=== PATIENT | male | born 1950 | race Caucasian/White ===

== ENCOUNTER 2017-10-12 13:59 | Emergency (ER) | payer BC ==
--- NOTE | 2017-10-12 14:49 | EDM.PDOC ---
ED HPI GENERAL MEDICAL PROBLEM - General Chief Complaint: Diabetic Complaint Stated Complaint: [id number] DIABETIC RIGHT FOOT TURNING BLACK Time Seen by Provider: 10/12/17 14:40 Source of Information: Reports: Patient History Limitations: Reports: No Limitations - History of Present Illness INITIAL COMMENTS - FREE TEXT/NARRATIVE: This 67 yo male patient reports to the ED with bruising to his right foot. The patient does not recall any specific injury to the area. The patient reports no pain to the area at this time. The patient reports increased concern due to him being a diabetic. Duration: Day(s): Location: Reports: Lower Extremity, Right Quality: Reports: Other Severity: Mild Improves with: Reports: None Worsens with: Reports: None - Related Data Allergies Allergy/AdvReac Type Severity Reaction Status Date / Time No Known Allergies Allergy Verified 10/12/17 14:12 Home Meds: Home Meds Aspirin [Ecotrin] 81 mg PO DAILY 10/12/17 [History] Insulin Aspart [NovoLOG] 26 units SUBCUT TID 10/12/17 [History] Insulin Glarg,Human.Rec.Analog [Lantus] 34 units SUBCUT BID 10/12/17 [History] Liraglutide [Victoza] 1.8 ml SUBCUT DAILY 10/12/17 [History] Multivitamin [Men's Multi-Vitamin] 1 tab PO DAILY 10/12/17 [History] Simvastatin [Zocor] 40 mg pe PO DAILY 10/12/17 [History] amLODIPine Besylate [Norvasc] 10 mg PO DAILY 10/12/17 [History] metFORMIN [Glucophage] 1,000 mg PO DAILY 10/12/17 [History] Past Medical History HEENT History: Reports: Impaired Vision Endocrine/Metabolic History: Reports: Diabetes, Type II - Infectious Disease History Infectious Disease History: Reports: Chicken Pox, Measles, Mumps - Past Surgical History Musculoskeletal Surgical History: Reports: Other (See Below) Other Musculoskeletal Surgeries/Procedures:: drill bit removed from top of right foot Social & Family History - Family History Family Medical History: Noncontributory - Tobacco Use Smoking Status *Q: Never Smoker - Caffeine Use Caffeine Use: Reports: None - Recreational Drug Use Recreational Drug Use: No ED ROS GENERAL - Review of Systems Review Of Systems: ROS reveals no pertinent complaints other than HPI. ED EXAM GENERAL NO PERIP PULSE - Physical Exam Exam: See Below Exam Limited By: No Limitations General Appearance: Alert, WD/WN, No Apparent Distress Eye Exam: Bilateral Eye: EOMI, Normal Inspection, PERRL Ears: Normal External Exam, Normal Canal, Hearing Grossly Normal, Normal TMs Nose: Normal Inspection, Normal Mucosa, No Blood Throat/Mouth: Normal Inspection, Normal Lips, Normal Teeth, Normal Gums, Normal Oropharynx, Normal Voice, No Airway Compromise Head: Atraumatic, Normocephalic Neck: Normal Inspection, Supple, Non-Tender, Full Range of Motion Respiratory/Chest: No Respiratory Distress, Lungs Clear, Normal Breath Sounds, No Accessory Muscle Use, Chest Non-Tender Cardiovascular: Normal Peripheral Pulses, Regular Rate, Rhythm, No Edema, No Gallop, No JVD, No Murmur, No Rub GI/Abdominal: Normal Bowel Sounds, Soft, Non-Tender, No Organomegaly, No Distention, No Abnormal Bruit, No Mass (Male) Exam: Deferred Rectal (Males) Exam: Deferred Back Exam: Normal Inspection, Full Range of Motion, NT Extremities: Other (bruising to the bases of his right 2nd, 3rd and 4th toes) Neurological: Alert, Oriented, CN II-XII Intact, Normal Cognition, Normal Gait, Normal Reflexes, No Motor/Sensory Deficits Psychiatric: Normal Affect, Normal Mood Skin Exam: Warm, Dry, Intact, No Rash, Ecchymosis Lymphatic: No Adenopathy Course - Vital Signs Last Recorded V/S: Last Vital Signs Temp 36.6 C 10/12/17 14:06 Pulse 86 10/12/17 14:06 Resp 15 10/12/17 14:06 BP 143/115 H 10/12/17 14:06 Pulse Ox 100 10/12/17 14:06 - Orders/Labs/Meds Labs: Laboratory Tests 10/12/17 Range/Units 14:17 POC Glucose 118 H (70-105) mg/dl Departure - Departure Time of Disposition: 15:23 Disposition: Home, Self-Care 01 Condition: Fair Clinical Impression: Foot contusion Qualifiers: Encounter type: initial encounter Laterality: right Qualified Code(s): S90.31XA - Contusion of right foot, initial encounter - Discharge Information *PRESCRIPTION DRUG MONITORING PROGRAM REVIEWED*: Not Applicable *COPY OF PRESCRIPTION DRUG MONITORING REPORT IN PATIENT JORGE: Not Applicable Instructions: Foot Contusion Forms: ED Department Discharge Care Plan Goals: The patient was advised of the examination and x-ray results during the visit. The patient was encouraged to rest and elevate the extremity over the next 48 hours. If the patient has any additional symptoms or concerns, the patient should follow up with his primary care facility or return to the emergency department.
--- NOTE | 2017-10-12 15:07 | CR ---
Clinical history: 67-year-old male "bruising" of the forefoot (second, third and fourth toes). Interpretation: Chronic arthritic changes first metatarsophalangeal and all interphalangeal/DIP joint s. No sign of right foot fracture or joint dislocation. Large heel spurs at the insertion Achilles tendon and plantar aponeurosis on the os calcis. No foreign bodies or inflammatory periostitis.
== END 2017-10-12 15:35 | disposition home or self-care (01) ==
LOC: DL.ED 13:59
DX: S90.31XA Contusion of right foot, initial encounter (principal); E11.9 Type 2 diabetes mellitus without complications; Z79.4 Long term (current) use of insulin; Z79.899 Other long term (current) drug therapy; Z79.82 Long term (current) use of aspirin; X58.XXXA Exposure to other specified factors, initial encounter
CPT/HCPCS: 73630-RT; 82962; 99283

== ENCOUNTER 2018-04-09 18:26 | Emergency (ER) | payer MEDICARE, BC ==
[2018-04-09 19:46] LABS: ANION GAP 15.2; CHLORIDE,CL 106 mmol/L (101-111); SODIUM,NA 137 mmol/L (135-145)
--- NOTE | 2018-04-09 21:28 | EDM.PDOC ---
ED HPI GENERAL MEDICAL PROBLEM - General Chief Complaint: General Stated Complaint: [facility] Time Seen by Provider: 04/09/18 19:05 Source of Information: Reports: Patient, EMS, RN Notes Reviewed History Limitations: Reports: No Limitations - History of Present Illness INITIAL COMMENTS - FREE TEXT/NARRATIVE: ED via EMS. Hypoglycemic episode, reported blood sugar at home 30. EMS arrival BS22. D50 given with arousal and oral glucose . BS 109 on arrival to ED. Patient reported to have taken am insulin at 2pm of 40 units Lantus and 30 units of regular and did not eat. Stated he just didnot feel hungry. Patient known to facility with similar episode. No vomiting or other symptoms. No injury Treatments RN INTERNATIONAL: Reports: EKG, Glucagon - Related Data Allergies Allergy/AdvReac Type Severity Reaction Status Date / Time Penicillins Allergy Cannot Verified 04/09/18 18:48 Remember Home Meds: Home Meds Aspirin [Ecotrin] 81 mg PO DAILY 10/12/17 [History] Insulin Aspart [NovoLOG] 35 units SUBCUT TID 10/12/17 [History] Insulin Glarg,Human.Rec.Analog [Lantus] 60 units SUBCUT BID 10/12/17 [History] Liraglutide [Victoza] 1.8 ml SUBCUT DAILY 10/12/17 [History] Multivitamin [Men's Multi-Vitamin] 1 tab PO DAILY 10/12/17 [History] amLODIPine Besylate [Norvasc] 10 mg PO DAILY 10/12/17 [History] metFORMIN [Glucophage] 1,000 mg PO DAILY 10/12/17 [History] Past Medical History HEENT History: Reports: Impaired Vision Endocrine/Metabolic History: Reports: Diabetes, Type II - Infectious Disease History Infectious Disease History: Reports: Chicken Pox, Measles, Mumps - Past Surgical History Musculoskeletal Surgical History: Reports: Other (See Below) Other Musculoskeletal Surgeries/Procedures:: drill bit removed from top of right foot Social & Family History - Family History Family Medical History: Noncontributory - Tobacco Use Smoking Status *Q: Never Smoker Second Hand Smoke Exposure: No - Caffeine Use Caffeine Use: Reports: Coffee, Soda, Tea - Recreational Drug Use Recreational Drug Use: No ED ROS GENERAL - Review of Systems Review Of Systems: ROS reveals no pertinent complaints other than HPI. ED EXAM, GENERAL - Physical Exam Exam: See Below Exam Limited By: No Limitations General Appearance: No Apparent Distress, Lethargic ( Arouses easily to voice) Eye Exam: Bilateral Eye: EOMI Ears: Normal External Exam, Normal TMs Nose: Normal Inspection Throat/Mouth: Normal Inspection Head: Atraumatic, Normocephalic Neck: Normal Inspection, Full Range of Motion Respiratory/Chest: No Respiratory Distress, Lungs Clear, Normal Breath Sounds Cardiovascular: Normal Peripheral Pulses, Regular Rate, Rhythm GI/Abdominal: Normal Bowel Sounds, Soft Extremities: Normal Inspection, Normal Range of Motion Neurological: Oriented, Slow to Respond Psychiatric: Flat Affect (avoidant) Skin Exam: Warm, Dry, Intact, Normal Color Course - Vital Signs Last Recorded V/S: Last Vital Signs Temp 96.3 F 04/09/18 18:56 Pulse 81 04/09/18 18:56 Resp 18 04/09/18 18:56 BP 158/73 H 04/09/18 18:56 Pulse Ox 100 04/09/18 18:56 - Orders/Labs/Meds Labs: Laboratory Tests 04/09/18 04/09/18 04/09/18 Range/Units 18:34 19:04 19:21 WBC 10.0 (5.0-10.0) 10^3/uL RBC 4.00 L (4.6-6.2) 10^6/uL Hgb 12.4 L (14.0-18.0) g/dL Hct 36.7 L (40.0-54.0) % MCV 91.8 (80-100) fL MCH 31.0 (27.0-34.0) pg MCHC 33.8 (33.0-35.0) g/dL Plt Count 171 (150-450) 10^3/uL Neut % (Auto) 86.7 H (42.2-75.2) % Lymph % (Auto) 6.8 L (20.5-50.1) % [place] % (Auto) 6.2 (2-8) % Eos % (Auto) 0.2 L (1.0-3.0) % Baso % (Auto) 0.1 (0.0-1.0) % Sodium (135-145) mmol/L Potassium (3.6-5.0) mmol/L Chloride (101-111) mmol/L Carbon Dioxide (21.0-31.0) mmol/L Anion Gap BUN (7-18) mg/dL Creatinine (0.6-1.3) mg/dL Est Cr Clr Drug Dosing mL/min Estimated GFR (MDRD) BUN/Creatinine Ratio Glucose (74-105) mg/dL POC Glucose 109 H 120 H (70-105) mg/dl Calcium (8.4-10.2) mg/dl Total Bilirubin (0.2-1.0) mg/dL AST (10-42) IU/L ALT (10-60) IU/L Alkaline Phosphatase (42-121) IU/L Total Protein (6.7-8.2) g/dl Albumin (3.2-5.5) g/dl Globulin Albumin/Globulin Ratio Ethyl Alcohol mg/dL 04/09/18 04/09/18 04/09/18 Range/Units 19:21 19:51 21:21 WBC (5.0-10.0) 10^3/uL RBC (4.6-6.2) 10^6/uL Hgb (14.0-18.0) g/dL Hct (40.0-54.0) % MCV (80-100) fL MCH (27.0-34.0) pg MCHC (33.0-35.0) g/dL Plt Count (150-450) 10^3/uL Neut % (Auto) (42.2-75.2) % Lymph % (Auto) (20.5-50.1) % [place] % (Auto) (2-8) % Eos % (Auto) (1.0-3.0) % Baso % (Auto) (0.0-1.0) % Sodium 137 (135-145) mmol/L Potassium 4.2 (3.6-5.0) mmol/L Chloride 106 (101-111) mmol/L Carbon Dioxide 20.0 L (21.0-31.0) mmol/L Anion Gap 15.2 BUN 17 (7-18) mg/dL Creatinine 1.3 (0.6-1.3) mg/dL Est Cr Clr Drug Dosing 57.71 mL/min Estimated GFR (MDRD) 55 BUN/Creatinine Ratio 13.07 Glucose 146 H (74-105) mg/dL POC Glucose 115 H 216 H (70-105) mg/dl Calcium 8.4 (8.4-10.2) mg/dl Total Bilirubin 0.7 (0.2-1.0) mg/dL AST 37 (10-42) IU/L ALT 23 (10-60) IU/L Alkaline Phosphatase 75 (42-121) IU/L Total Protein 7.1 (6.7-8.2) g/dl Albumin 3.9 (3.2-5.5) g/dl Globulin 3.2 Albumin/Globulin Ratio 1.22 Ethyl Alcohol < 5 mg/dL - Re-Assessments/Exams Free Text/Narrative Re-Assessment/Exam: 04/11/18 01:33 Tolerating po, BS stable. More alert at discharge than on presentation . Departure - Departure Time of Disposition: 21:25 Disposition: Home, Self-Care 01 Condition: Good Clinical Impression: IDDM (insulin dependent diabetes mellitus), Hypoglycemia - Discharge Information *PRESCRIPTION DRUG MONITORING PROGRAM REVIEWED*: Not Applicable Instructions: Hypoglycemia Forms: ED Department Discharge Additional Instructions: check blood sugar before bedtime, take insulin as directed Eat regular meals, do not skip meals especially if taking short acting insulin follow up as needed
== END 2018-04-09 21:31 | disposition home or self-care (01) ==
LOC: DL.ED 18:26
DX: E11.649 Type 2 diabetes mellitus with hypoglycemia without coma (principal); Z88.0 Allergy status to penicillin; Z79.82 Long term (current) use of aspirin; Z79.899 Other long term (current) drug therapy
CPT/HCPCS: 36415; 80053; 82962; 85025; 93005; 99285; G0480